=== PATIENT | female | born 1980 | race African-American/Black ===

== ENCOUNTER 2019-03-20 09:32 | Emergency (ER) | payer OTHER ==
[~2019-03-20] VITALS: Ht 170.2 cm; Wt 90.8 kg
[2019-03-20 09:33] VITALS: BP 114/82
[2019-03-20] MEDS ORDERED: LEXA1TAB PO (09:56)
[2019-03-20] MEDS ORDERED: MUCI600T31 PO (10:40)
[2019-03-20] MEDS ORDERED: FLON1SPR NARES (10:40)
[2019-03-20] MEDS ORDERED: CETI10CA2 PO (10:40)
[2019-03-20] MEDS ORDERED: VENTAER INH (10:40)
== END 2019-03-20 10:45 | disposition home or self-care (01) ==
LOC: M ED 09:32
DX: J30.9 Allergic rhinitis, unspecified (principal); J45.901 Unspecified asthma with (acute) exacerbation; F12.90 Cannabis use, unspecified, uncomplicated; Z79.52 Long term (current) use of systemic steroids; Z88.2 Allergy status to sulfonamides; Z91.048 Other nonmedicinal substance allergy status

== ENCOUNTER → 2020-11-27 | Outpatient (CLI) | payer OTHER ==
[~2020-11-27] MED LIST: CETI10CA2 PO; FLON1SPR NARES; LEXA1TAB PO; MUCI600T31 PO; VENTAER INH
--- NOTE | 2020-11-27 15:23 | REPMRS ---
Patient History The patient states she has not had a clinical breast exam in over a year. Patient had first child at age 36. Family history of breast cancer at age 33 in mother, lung cancer in maternal grandmother. 3D TOMOSYNTHESIS WAS PERFORMED. Antonette breast density b. Digital Woman Screen Mammo: November 27, 2020 - Exam #: [id number] Bilateral CC and MLO view(s) were taken. Technologist: Carlee Nevarez, Technologist No prior studies available for comparison. FINDINGS: There are scattered fibroglandular densities. There is a mild amount of residual fibroglandular tissue which is fairly symmetric. There is no dominant mass, architectural distortion, or clustered microcalcification suggestive of malignancy. Assessment: BI-RADS/ACR category 1 mammogram. Negative Mammogram. Recommendation Routine screening mammogram in 1 year (for women over age 40). This mammogram was interpreted with the aid of an FDA-approved computer-aided dectection system. THE LIFETIME RISK OF BREAST CANCER IS 32.4 %, THEREFORE SUPPLEMENTAL SCREENING MRI OF THE BREASTS IS RECOMMENDED IN 6 MONTHS. Electronically Signed By: Fredis Valles MD 11/27/20 [id number]
== END ==
LOC: M WHC 14:17
PROVIDERS: ATTEND Family Medicine
DX: Z12.31 Encounter for screening mammogram for malignant neoplasm of breast (principal); Z80.3 Family history of malignant neoplasm of breast